=== PATIENT | male | born 1990 | race Caucasian/White ===

== ENCOUNTER 2017-09-07 14:02 | Observation (INO) | payer SELFPAY ==
[2017-09-07] VITALS (7 sets, daily range): BP systolic 136–172; BP diastolic 86–93; PULSE 58–86; RESP 16–18; TEMP 97.8–98.4; O2SAT 96–99
[~2017-09-07] VITALS: Ht 172.7 cm; Wt 100.0 kg
--- NOTE | 2017-09-07 15:03 | RADRPT ---
EXAM DATE/TIME: 09/07/2017 14:58 [place] COMPARISON: No previous studies available for comparison. INDICATIONS : Chest pain. MEDICAL HISTORY : None. SURGICAL HISTORY : None. ENCOUNTER: Initial ACUITY: 1 day PAIN SCORE: 8/10 LOCATION: Left chest medial side FINDINGS: PA and lateral views of the chest demonstrate the lungs to be symmetrically aerated without evidence of mass, infiltrate or effusion. The cardiomediastinal contours are unremarkable. Osseous structure s are intact. CONCLUSION: No acute disease. Adeel Voss MD on September 07, 2017 at 15:01 Board Certified Radiologist. This report was verified electronically.
--- NOTE | 2017-09-07 15:39 | PD ---
HPI Chief Complaint: Chest Pain Time Seen by Provider: 15:38 Travel History International Travel<30 days: No Contact w/Intl Traveler<30days: No Traveled to known affect area: No History of Present Illness HPI 27-year-old male came to the emergency room with history of left-sided chest pain that started last night and got worse this morning. Patient has no prior history of coronary artery disease. Both his parents are here and mom says that coronary artery disease is very prevalent in her side of the family and both her mom and dad. Patient is a smoker and drinks 12 packs every day of beer. Patient is currently complaining of chest pain. Points to the left side of his chest with some radiating pain and numbness to his left upper extremity. No history of shortness of breath, nausea vomiting or lightheadedness associated. Vital signs were stable. [facility] Past Medical History Narrative Medical List of his past medical, surgical, social and family history is reviewed from the nursing note. Social History Alcohol Use: Yes Tobacco Use: Yes Allergies-Medications (Allergen,Severity, Reaction): Coded Allergies: erythromycin base (Verified Allergy, Severe, SWELLING , 09/07/17) Comments List of his allergies reviewed from the nursing note. Reported Meds & Prescriptions Reported Meds & Active Scripts Active Narrative Medication List of his home medications reviewed from the nursing note. Review of Systems Except as stated in HPI: all other systems reviewed are Neg Cardiovascular: Positive: Chest Pain or Discomfort Physical Exam Narrative GENERAL: Awake, alert, no obvious distress SKIN: Focused skin assessment warm/dry. HEAD: Atraumatic. Normocephalic. EYES: Pupils equal and round. No scleral icterus. No injection or drainage. ENT: No nasal bleeding or discharge. Mucous membranes pink and moist. NECK: Trachea midline. No JVD. CARDIOVASCULAR: Regular rate and rhythm. No murmur appreciated. RESPIRATORY: No accessory muscle use. Clear to auscultation. Breath sounds equal bilaterally. GASTROINTESTINAL: Abdomen soft, non-tender, nondistended. Hepatic and splenic margins not palpable. MUSCULOSKELETAL: No obvious deformities. No clubbing. No cyanosis. No edema. NEUROLOGICAL: Awake and alert. No obvious cranial nerve deficits. Motor grossly within normal limits. Normal speech. PSYCHIATRIC: Appropriate mood and affect; insight and judgment normal. Data Data Last Documented VS Orders Orders Electrocardiogram (09/07/17 14:23) Complete Blood Count With Diff (10/16/17 14:23) Basic Metabolic Panel (Bmp) (09/07/17 14:23) Ckmb (Isoenzyme) Profile (09/07/17 14:23) Troponin I (09/07/17 14:23) Iv Access Insert/Monitor (09/07/17 14:23) Ecg Monitoring (09/07/17 14:23) Oxygen Administration (09/07/17 14:23) Oximetry (09/07/17 14:23) Chest, Pa & Lat (09/07/17 14:23) CKMB (09/07/17 16:41) CKMB% (09/07/17 16:41) Admit Order (Ed Use Only) (09/07/17 17:56) Labs Laboratory Tests Test 09/07/17 16:41 White Blood Count 11.1 TH/MM3 Red Blood Count 4.65 MIL/MM3 Hemoglobin 14.8 GM/DL Hematocrit 43.4 % Mean Corpuscular Volume 93.3 FL Mean Corpuscular Hemoglobin 31.8 PG Mean Corpuscular Hemoglobin Concent 34.0 % Red Cell Distribution Width 13.3 % Platelet Count 308 TH/MM3 Mean Platelet Volume 9.4 FL Neutrophils (%) (Auto) 71.8 % Lymphocytes (%) (Auto) 19.3 % Monocytes (%) (Auto) 7.7 % Eosinophils (%) (Auto) 0.7 % Basophils (%) (Auto) 0.5 % Neutrophils # (Auto) 7.9 TH/MM3 Lymphocytes # (Auto) 2.1 TH/MM3 Monocytes # (Auto) 0.9 TH/MM3 Eosinophils # (Auto) 0.1 TH/MM3 Basophils # (Auto) 0.1 TH/MM3 CBC Comment DIFF FINAL Differential Comment Blood Urea Nitrogen 16 MG/DL Creatinine 1.10 MG/DL Random Glucose 93 MG/DL Calcium Level 9.2 MG/DL Sodium Level 139 MEQ/L Potassium Level 3.9 MEQ/L Chloride Level 106 MEQ/L Carbon Dioxide Level 24.2 MEQ/L Anion Gap 9 MEQ/L Estimat Glomerular Filtration Rate 79 ML/MIN Total Creatine Kinase 140 U/L Creatine Kinase MB 0.9 NG/ML Troponin I LESS THAN 0.02 NG/ML MDM Medical Decision Making Medical Screen Exam Complete: Yes Emergency Medical Condition: Yes Medical Record Reviewed: Yes Interpretation(s) Twelve-lead EKG was reviewed by me. Normal sinus rhythm, normal axis, nonspecific ST-T wave changes. Heart rate of 77 bpm. Differential Diagnosis ACS, non-STEMI, nonspecific chest pain Narrative Course 5:59 PM blood test results of any back. Troponin is negative. I would like to admit him to the chest pain center to be ruled out given his strong family history. I have explained this to the patient and the family and they understand. Procedures EKG Prior to Arrival: No Diagnosis Primary Impression: Chest pain Qualified Codes: R07.9 - Chest pain, unspecified Additional Impression: Chronic alcohol abuse Admitting Information Admitting Physician Requests: Observation Fuad Jalloh MD Sep 07, 2017 15:39
[2017-09-07 17:00] LABS: AUTOMATED NEUTROPHIL # 7.9 TH/MM3 (1.8-7.7); BASOPHIL # 0.1 TH/MM3 (0-0.2); BASOPHIL % 0.5 % (0.0-2.0); EOSINOPHIL # 0.1 TH/MM3 (0-0.4); EOSINOPHIL % 0.7 % (0.0-4.0); HEMATOCRIT 43.4 % (39.0-51.0); HEMO FLAGS DIFF FINAL; LYMPH % 19.3 % (9.0-44.0); LYMPHOCYTE # 2.1 TH/MM3 (1.0-4.8); MEAN CELL VOLUME 93.3 FL (80.0-100.0); MEAN CORPUSCULAR HEMOGLOBIN 31.8 PG (27.0-34.0); MONO % 7.7 % (0.0-8.0); NEUT % 71.8 % (16.0-70.0); PLATELET COUNT 308 TH/MM3 (150-450); RED BLOOD COUNT 4.65 MIL/MM3 (4.50-5.90); RED CELL DISTRIBUTION WIDTH 13.3 % (11.6-17.2); WHITE BLOOD COUNT 11.1 TH/MM3 (4.0-11.0)
[2017-09-07 17:14] LABS: ANION GAP 9 MEQ/L (5-15); BICARBONATE 24.2 MEQ/L (21.0-32.0); BLOOD UREA NITROGEN 16 MG/DL (7-18); CHLORIDE 106 MEQ/L (98-107); GLOMERULAR FILTRATION RATE 79 ML/MIN (>89); POTASSIUM 3.9 MEQ/L (3.5-5.1); SODIUM (NA) 139 MEQ/L (136-145)
[2017-09-07 17:20] LABS: CREATINE KINASE 140 U/L (39-308)
[2017-09-07 17:33] LABS: CKMB 0.9 NG/ML (0.5-3.6)
[2017-09-07] MEDS ORDERED: SODIUM CHLORIDE 0.9% FLUSH 10 ML FLUSH IV FLUSH PRN (18:00)
[2017-09-07] MEDS ORDERED: ONDANSETRON HCL 4 MG/2 ML VIAL IV PUSH PRN (18:00)
[2017-09-07] MEDS ORDERED: ACETAMINOPHEN 500 MG CPLT PO PRN (18:00)
[2017-09-07] MEDS ORDERED: NITROGLYCERIN 0.4 MG SL 25 TABS/BTL SL PRN (18:00)
[2017-09-07 19:34] LABS: CREATINE KINASE 120 U/L (39-308)
[2017-09-07] MEDS: SODIUM CHLORIDE 0.9% FLUSH 10 ML FLUSH IV FLUSH SCH (21:00)
[2017-09-07 22:40] LABS: CREATINE KINASE 111 U/L (39-308)
[2017-09-07 22:53] LABS: CKMB 0.7 NG/ML (0.5-3.6)
[2017-09-08 03:38] VITALS: BP 132/83; PULSE 67; RESP 18; TEMP 98.1; O2SAT 100
[2017-09-08 07:34] VITALS: BP 141/88; PULSE 60; RESP 18; TEMP 97.7; O2SAT 97
[2017-09-08 08:34] VITALS: O2SAT 97
[2017-09-08 08:54] VITALS: PULSE 60
--- NOTE | 2017-09-08 08:58 | HHI.HP ---
HPI Primary Care Physician No Primary Care Physician Chief Complaint Chest pain History of Present Illness This is a 27-year-old male that presents to ED via private vehicle with a complaint of chest discomfort. States that he was eating lunch at work when he developed a left-sided stabbing discomfort that was a 6-7 out of 10 lasting 2-3 hours. However it turned into a tightness at a much milder level but lingered on for another 5 or 6 hours. At the same time he states he felt a numbness in his left arm. He was able to move it and use it but it felt numb. While he had the found nothing to worsen or improve the symptoms. Denies shortness of breath, nausea, or diaphoresis. Denies recent illness. Denies fevers or chills. Review of Systems General: Patient denies fevers, chills recent, and recent travel HEENT: Patient denies headache, sore throat, difficulty swallowing. Cardiovascular: Has the chest discomfort as mentioned above. Denies sensation of heart beating rapidly or irregularly. No syncope. Denies diaphoresis. Respiratory: Denies shortness of breath or inspirational chest discomfort. Denies coughing wheezing or hemoptysis. GI: Patient denies nausea, vomiting, diarrhea, abdominal pain, bloody stools. Musculoskeletal: Patient denies joint pain or edema. Denies calf pain or edema. Neurovascular: Patient denies numbness, tingling, weakness in extremities. Denies headache. Endocrine: Denies polyuria and polydipsia. Hematologic: Denies easy bruising. Skin: Denies rash or itching. Past Family Social History Allergies: Coded Allergies: erythromycin base (Verified Allergy, Severe, SWELLING , 09/07/17) Past Medical History Alcohol abuse. Denies hypertension, hyperlipidemia, diabetes, and CAD. Past Surgical History Denies surgeries. Active Ordered Medications Current Medications Medications (Trade) Dose Ordered Sig/Candelario Route Start Time Stop Time Status Last Admin (NS Flush) 2 ml UNSCH PRN IV FLUSH 09/07/17 18:00 (NS Flush) 2 ml BID IV FLUSH 09/07/17 21:00 09/07/17 21:00 (Tylenol) 500 mg Q4H PRN PO 09/07/17 18:00 (Zofran Inj) 4 mg Q6H PRN IV PUSH 09/07/17 18:00 (Nitrostat Sl) 0.4 mg Q5M PRN SL 09/07/17 18:00 Family History Denies family history of CAD. Social History Patient drinks about 12 beers per day. Smokes marijuana stating "I spoke to joints a day." States he quit smoking cigarettes 2 years ago but prior to that he smoked 2 packs of cigarettes daily for 10 years. Physical Exam Vital Signs Vital Signs Date Time Temp Pulse Resp B/P (MAP) Pulse Ox O2 Delivery O2 Flow Rate FiO2 09/08/17 08:34 97 09/08/17 07:34 97.7 60 18 141/88 (105) 97 09/08/17 05:28 21 09/08/17 03:38 98.1 67 18 132/83 (99) 100 09/07/17 23:40 97.8 58 18 136/86 (103) 98 09/07/17 23:00 64 09/07/17 19:47 97.8 69 18 142/90 (107) 96 09/07/17 19:15 09/07/17 18:55 99 09/07/17 18:41 77 18 154/87 (109) 98 Room Air 09/07/17 15:51 18 98 Room Air 09/07/17 15:51 98 Room Air 09/07/17 15:44 18 18 100 Room Air 09/07/17 14:03 98.4 86 16 172/93 (119) 98 Physical Exam GENERAL: This is a well-nourished, well-developed patient, in no apparent distress. Patient speaks in clear complete sentences. Patient is pleasant. HEENT: Head is atraumatic and normocephalic. Neck is supple without lymphadenopathy and trachea is midline. No JVD or carotid bruits. CARDIOVASCULAR: Regular rate and rhythm without murmurs, gallops, or rubs. RESPIRATORY: Clear to auscultation. Breath sounds equal bilaterally. No wheezes , rales, or rhonchi. Chest wall is nontender. No use of accessory muscles. GASTROINTESTINAL: Abdomen is nontender, nondistended. Abdomen soft. No obvious pulsatile mass or bruit. No CVA tenderness. Strong femoral pulses bilaterally. Normal bowel sounds in all quadrants. MUSCULOSKELETAL: Patient is moving upper and lower extremities freely. No calf tenderness or edema, no Homans sign. Strong pulses in upper and lower extremities. NEUROLOGICAL: Patient is alert and oriented. Cranial nerves 2-12 are grossly intact. No focal deficits and speech is clear. SKIN: No rash and turgor is normal. Laboratory Laboratory Tests Test 09/07/17 16:41 09/07/17 18:25 09/07/17 21:30 White Blood Count 11.1 Red Blood Count 4.65 Hemoglobin 14.8 Hematocrit 43.4 Mean Corpuscular Volume 93.3 Mean Corpuscular Hemoglobin 31.8 Mean Corpuscular Hemoglobin Concent 34.0 Red Cell Distribution Width 13.3 Platelet Count 308 Mean Platelet Volume 9.4 Neutrophils (%) (Auto) 71.8 Lymphocytes (%) (Auto) 19.3 Monocytes (%) (Auto) 7.7 Eosinophils (%) (Auto) 0.7 Basophils (%) (Auto) 0.5 Neutrophils # (Auto) 7.9 Lymphocytes # (Auto) 2.1 Monocytes # (Auto) 0.9 Eosinophils # (Auto) 0.1 Basophils # (Auto) 0.1 CBC Comment DIFF FINAL Differential Comment Blood Urea Nitrogen 16 Creatinine 1.10 Random Glucose 93 Calcium Level 9.2 Sodium Level 139 Potassium Level 3.9 Chloride Level 106 Carbon Dioxide Level 24.2 Anion Gap 9 Estimat Glomerular Filtration Rate 79 Total Creatine Kinase 140 120 111 Creatine Kinase MB 0.9 0.7 Troponin I LESS THAN 0.02 LESS THAN 0.02 LESS THAN 0.02 Result Diagram: 09/07/17 1641 09/07/17 1641 Imaging Last 48 hours Impressions Chest X-Ray 09/07/17 1423 Signed Impressions: Service Date/Time: Thursday, September 07, 2017 14:58 - CONCLUSION: No acute disease. Adeel Voss MD Course EKGs are sinus rhythm/sinus arrhythmia without significant ST segment depressions or elevations. Caprini VTE Risk Assessment Caprini VTE Risk Assessment: No/Low Risk (score <= 1) Caprini Risk Assessment Model Point Value = 1 Point Value = 2 Point Value = 3 Point Value = 5 Age 41-60 Minor surgery BMI > 25 kg/m2 Swollen legs Varicose veins or History of unexplained or recurrent spontaneous Oral contraceptives or hormone replacement Sepsis (< 1 month) Serious lung disease, including pneumonia (< 1 month) Abnormal pulmonary function Acute myocardial infarction Congestive heart failure (< 1 month) History of inflammatory bowel disease Medical patient at bed rest Age 61-74 Arthroscopic surgery Major open surgery (> 45 min) Laparoscopic surgery (> 45 min) Malignancy Confined to bed (> 72 hours) Immobilizing plaster cast Central venous access Age >= 75 History of VTE Family history of VTE Factor V Leiden Prothrombin [id number] Lupus anticoagulant Anticardiolipin antibodies Elevated serum homocysteine Heparin-induced thrombocytopenia Other congenital or acquired thrombophilia Stroke (< 1 month) Elective arthroplasty Hip, pelvis, or leg fracture Acute spinal cord injury (< 1 month) Prophylaxis Regimen Total Risk Factor Score Risk Level Prophylaxis Regimen 0-1 Low Early ambulation 2 Moderate Order ONE of the following: *Sequential Compression Device (SCD) *Heparin 5000 units SQ BID 3-4 Higher Order ONE of the following medications: *Heparin 5000 units SQ TID *Enoxaparin/Lovenox 40 mg SQ daily (WT < 150 kg, CrCl > 30 mL/min) *Enoxaparin/Lovenox 30 mg SQ daily (WT < 150 kg, CrCl > 10-29 mL/min) *Enoxaparin/Lovenox 30 mg SQ BID (WT < 150 kg, CrCl > 30 mL/min) AND/OR *Sequential Compression Device (SCD) 5 or more Highest Order ONE of the following medications: *Heparin 5000 units SQ TID (Preferred with Epidurals) *Enoxaparin/Lovenox 40 mg SQ daily (WT < 150 kg, CrCl > 30 mL/min) *Enoxaparin/Lovenox 30 mg SQ daily (WT < 150 kg, CrCl > 10-29 mL/min) *Enoxaparin/Lovenox 30 mg SQ BID (WT < 150 kg, CrCl > 30 mL/min) AND *Sequential Compression Device (SCD) Assessment and Plan Assessment and Plan * Chest pain: Patient has had serial cardiac enzymes and EKGs for ruling out purposes. He will be seen by Dr. Arias of cardiology in the chest pain center and likely undergo a Jonathan protocol ETT and if that is nonischemic will be discharged home with instructions to follow-up with PCP. Return to ED for interval issues. * Alcohol abuse: Patient has been counseled on importance of significantly reducing his alcohol intake. He works in the heat and has been reminded to keep himself hydrated with water. Patient is stable at this time. He is agreeable to this plan. Lalo Hawthorne Sep 08, 2017 08:58
[2017-09-08] MEDS: SODIUM CHLORIDE 0.9% FLUSH 10 ML FLUSH IV FLUSH SCH (09:00)
[2017-09-08] MEDS ORDERED: LISINOPRIL 10 MG TAB PO ONE (10:15)
--- NOTE | 2017-09-08 11:22 | TR ---
Date Performed: 09/08/2017 Time Performed: 09:52:40 DOCTOR: Will Arias DRUG LIST: CLINICAL HISTORY: REASON FOR TEST: REASON FOR ENDING: OBSERVATION: CONCLUSION: EDD PROTOCOL. NO CP. TEST STOPPED AFTER EXCEEDING GOAL HR SECONDARY TO SOB AND LE G FATIGUE.Maximum JS=963 % Max HR Achieved=90.0% Maximum XF=810/84 Total Exercise Time=9:15 COMMENTS: Conclusion: Normal treadmill exercise. No evidence of ischemia.
--- NOTE | 2017-09-08 11:42 | HHI.DCPOC ---
Discharge Care Plan Diagnosis: (1) Hypertension (2) Alcohol abuse (3) Chest pain Goals to Promote Your Health * To prevent worsening of your condition and complications * To maintain your health at the optimal level Directions to Meet Your Goals Take your medications as prescribed Follow your dietary instruction Follow activity as directed Keep your appointments as scheduled Take your immunizations and boosters as scheduled If your symptoms worsen call your PCP, if no PCP go to Urgent Care Center or Emergency Room Smoking is Dangerous to Your Health. Avoid second hand smoke Call the 24-hour hour crisis hotline for domestic abuse at Lalo Hawthorne Sep 08, 2017 11:42
[2017-09-08] MEDS ORDERED: LISI10TA3 PO (11:44)
--- NOTE | 2017-09-08 18:15 | EKG ---
Date Performed: 09/07/2017 Time Performed: 21:25:45 PTAGE: 27 years EKG: Sinus rhythm WITH SINUS ARRHYTHMIA NORMAL ECG PREVIOUS TRACING : 09/07/2017 21.24 Since previous tracing, no significant change noted DOCTOR: Will Arias Interpretating Date/Time 09/08/2017 18:15:22
--- NOTE | 2017-09-08 18:22 | EKG ---
Date Performed: 09/07/2017 Time Performed: 18:30:22 PTAGE: 27 years EKG: Sinus rhythm LOW QRS VOLTAGE IN EXTREMITY LEADS BORDERLINE ECG INTERPRETATION BASED ON A DEFAULT AGE OF 40 YEARS Compared to PREVIOUS TRACING ,QRS voltage smaller in limb leads. DOCTOR: Will Arias Interpretating Date/Time 09/08/2017 18:21:07
--- NOTE | 2017-09-08 18:25 | EKG ---
Date Performed: 09/07/2017 Time Performed: 15:42:54 PTAGE: 27 years EKG: Sinus rhythm WITH SINUS ARRHYTHMIA NORMAL ECG NO PREVIOUS TRACING DOCTOR: Will Arias Interpretating Date/Time 09/08/2017 18:23:02
== END 2017-09-08 12:25 | disposition home or self-care (01) ==
LOC: NEPC 14:02 → NEDA 17:57 → NEPHCDU 19:15
PROVIDERS: ADMIT Internal Medicine Interventional Cardiology; ATTEND Internal Medicine Interventional Cardiology
DX: R07.9 Chest pain, unspecified (principal); F17.210 Nicotine dependence, cigarettes, uncomplicated; F10.10 Alcohol abuse, uncomplicated; R20.0 Anesthesia of skin; F12.90 Cannabis use, unspecified, uncomplicated; I10 Essential (primary) hypertension
CPT/HCPCS: 71020; 80048; 82550; 82552; 84484; 85025; 93005; 93017; 99285; G0378